=== PATIENT | male | born 1995 | race Caucasian/White ===

== ENCOUNTER → 2017-01-28 | Outpatient (CLI) | payer OTHER ==
[~2017-01-28] MED LIST: OMNIPAQUE 350 MG/ML, 100ML BOTTLE ONE
== END | disposition home or self-care (01) ==
LOC: CFH 13:34
PROVIDERS: ATTEND Nurse Practitioner
DX: M54.5 Low back pain (principal); I10 Essential (primary) hypertension
CPT/HCPCS: 74174; 82565; Q9967